=== PATIENT | female | born 1945 | race Hispanic/Latino ===

== ENCOUNTER → 2022-12-04 | Outpatient (CLI) | payer OTHER ==
[~2022-12-04] MED LIST: IOHEXOL 350 MG/ML 100ML INFUS..BTL IV ONE
== END | disposition home or self-care (01) ==
LOC: RAH 10:00
PROVIDERS: ATTEND Internal Medicine Cardiovascular Disease
DX: I65.23 Occlusion and stenosis of bilateral carotid arteries (principal); I25.10 Atherosclerotic heart disease of native coronary artery without angina pectoris; I70.0 Atherosclerosis of aorta
CPT/HCPCS: 70498; Q9967

== ENCOUNTER 2023-06-21 09:00 | Inpatient (IN) | payer OTHER ==
[~2023-06-21] VITALS: Ht 157.5 cm; Wt 76.8 kg
[2023-06-22 11:36] VITALS: BP 198/78; PULSE 71; RESP 17
[2023-06-22 12:52] LABS: APPEARANCE,URINE CLEAR (CLEAR); BILIRUBIN,URINE NEGATIVE (NEGATIVE); COLOR,URINE LIGHT-YELLOW (YELLOW); GLUCOSE, URINE (UA) NEGATIVE (NEGATIVE); KETONES,URINE NEGATIVE (NEGATIVE); LEUKOCYTE ESTERASE ,URINE 75 Leu/uL (NEGATIVE); NITRATE,URINE NEGATIVE (NEGATIVE); OCCULT BLOOD,URINE NEGATIVE (NEGATIVE); PROTEIN,URINE NEGATIVE (NEGATIVE); UROBILINOGEN,URINE 0.2 mg/dL (0.2-1.0)
[2023-06-22 12:53] LABS: BASOPHILS # (AUTO) 0.07 K/uL (0.00-0.20); BASOPHILS % (AUTO) 0.7 % (0.0-5.0); EOSINOPHILS # (AUTO) 0.15 K/uL (0.00-0.70); EOSINOPHILS % (AUTO) 1.5 % (0.0-8.0); IMMATURE GRANULOCYTE ABSOLUTE 0.05 K/uL (0-1); LYMPHOCYTES # (AUTO) 2.7 K/uL (1.0-4.8); LYMPHOCYTES % (AUTO) 27.3 % (21.0-51.0); MEAN CORPUSCULAR HEMOGLOBIN 25.4 pg (27.0-33.0); MEAN CORPUSCULAR HGB CONC 30.8 g/dL (32.0-36.0); MEAN CORPUSCULAR VOLUME 82.6 fL (79-99); MONOCYTES # (AUTO) 0.7 K/uL (0.1-1.0); MONOCYTES % (AUTO) 7.3 % (3.0-13.0); NEUTROPHILS # (AUTO) 6.2 K/uL (1.8-7.7); NEUTROPHILS % (AUTO) 62.7 % (40.0-77.0); PLATELET COUNT (AUTO) 321 K/uL (130-400); RED CELL DISTRIBUTION WIDTH 17.9 % (11.0-15.5); WHITE BLOOD COUNT (AUTO) 9.8 K/uL (4.8-10.8)
[2023-06-22 13:01] LABS: CREATININE 0.8 mg/dL (0.5-1.5); POTASSIUM 4.2 mmol/L (3.5-5.1)
[2023-06-22 13:03] LABS: INR < 0.93 (0.85-1.15); PROTHROMBIN TIME 10.3 SEC (9.6-11.6)
[2023-06-22 13:16] LABS: ADD UA MICROSCOPIC YES
[2023-06-22 13:23] LABS: MUCUS,URINE RARE LPF (None Seen); RBC,URINE 0-1 /HPF (0-1); SQUAMOUS EPITHELIAL CELL,UR RARE /HPF (0-2)
[2023-06-24] MEDS ORDERED: FAMO20TA8 PO (11:45)
[2023-06-24] MEDS ORDERED: UBID50TA3 PO (11:45)
[2023-06-24] MEDS ORDERED: ROSU20TA73 PO (11:45)
[2023-06-24] MEDS ORDERED: PARO-37 PO ×2 (11:45)
[2023-06-24] MEDS ORDERED: ASPI-1197 PO (11:45)
[2023-06-24] MEDS ORDERED: SIME125C81 PO (11:45)
[2023-06-24] MEDS ORDERED: FOLATE PEG (11:45)
[2023-06-24] MEDS ORDERED: LOSA100T59 PO ×2 (11:45)
[2023-06-24] MEDS ORDERED: AMLO-257 PO (11:45)
[2023-06-24] MEDS ORDERED: IRON PO (11:45)
[2023-06-24] MEDS ORDERED: CHOL500050 PO (11:45)
[2023-06-24] MEDS ORDERED: HYDR25TA PO (11:45)
[2023-06-25] VITALS (56 sets, daily range): BP systolic 139–165; BP diastolic 41–71; PULSE 60–77; RESP 12–27; O2SAT 95–99
[2023-06-25] MEDS ORDERED: 0.9%NACL 1000ML 1,000 ML IV ONE (06:43)
[2023-06-25] MEDS ORDERED: ROCURONIUM 10MG/1ML SYR 10 MG/ML ML ONE (07:01)
[2023-06-25] MEDS ORDERED: FENTANYL CITRATE PF 50 MCG/1 ML 2ML VIAL ONE (07:01)
[2023-06-25] MEDS ORDERED: PROPOFOL 10 MG/ML 20ML VIAL IV ONE (07:01)
[2023-06-25] MEDS ORDERED: ONDANSETRON 4MG INJ ONE (07:01)
[2023-06-25] MEDS ORDERED: HEPARIN 10,000 UNIT/10ML (1,000 UNIT/ML) VIAL ONE (07:06)
[2023-06-25] MEDS ORDERED: LIDOCAINE HCL 1% 20 ML VIAL ONE (07:06)
[2023-06-25] MEDS ORDERED: IODIXANOL 320 MG/ML 100 ML VIAL ONE ×2 (07:06→09:06)
[2023-06-25] MEDS ORDERED: MIDAZOLAM HCL 1 MG/ML 2ML VIAL ONE (07:11)
[2023-06-25] MEDS ORDERED: CEFAZOLIN SODIUM 1 GM VIAL ONE ×2 (07:47→08:06)
[2023-06-25] MEDS ORDERED: PHENYLEPHRINE HCL 10 MG/ML 1ML VIAL IV ONE (07:57)
[2023-06-25] MEDS ORDERED: ATROPINE 1MG SYG IVP ONE (08:05)
[2023-06-25] MEDS ORDERED: GLYCOPYRROLATE 0.2 MG/ML 5 ML VIAL ONE (08:06)
[2023-06-25] MEDS ORDERED: ROCURONIUM BROMIDE 10MG/1ML 5ML VL ONE (09:14)
[2023-06-25] MEDS ORDERED: NEOSTIGMINE 5MG/5ML SYR IV ONE (09:29)
[2023-06-25] MEDS ORDERED: NOREPINEPHRIN 4MG/NS 250ML 250 ML IV SCH (09:30)
[2023-06-25] MEDS ORDERED: NITROGLYCERIN 50MG/D5W 250ML 250 BOT IV SCH (09:30)
[2023-06-25] MEDS ORDERED: HYDRALAZINE 20MG/ML VIAL ONE (09:41)
[2023-06-25] MEDS ORDERED: SUGAMMADEX SODIUM 200 MG/2 ML VIAL IV ONE (09:44)
[2023-06-25] MEDS ORDERED: SIMETHICONE 125 MG PO PRN (11:00)
[2023-06-25] MEDS ORDERED: DIPHENHYDRAMINE HCL 25 MG CAPSULE PO PRN (12:30)
[2023-06-25] MEDS ORDERED: GUAIFENESIN-DM 200/20 MG 10 ML PO PRN (12:30)
[2023-06-25] MEDS ORDERED: DiphenhydrAMINE HCL 50 MG/ML VIAL IV PRN (12:30)
[2023-06-25] MEDS ORDERED: HYDROCODONE/ACETAMINOPHEN 5/325 MG TAB PO PRN ×2 (12:30)
[2023-06-25] MEDS ORDERED: HYDRALAZINE 20MG/ML VIAL IV PRN (12:30)
[2023-06-25] MEDS ORDERED: ACETAMINOPHEN 325 MG TAB PO PRN ×2 (12:30)
[2023-06-25] MEDS ORDERED: ONDANSETRON 4MG INJ IV PRN (12:30)
[2023-06-25] MEDS ORDERED: HYDROMORPHONE 1 MG INJ IV PRN (12:30)
[2023-06-25] MEDS ORDERED: NITROGLYCERIN 0.4 MG SL TAB SL PRN (12:30)
[2023-06-25] MEDS ORDERED: LACTULOSE 20 GM/30 ML UDCUP PO PRN (12:30)
[2023-06-25] MEDS ORDERED: MAG/ALUM/SIMETH 30 ML UDCUP PO PRN (12:30)
[2023-06-25] MEDS: CEFAZOLIN SODIUM 1 GM VIAL IVPB SCH (15:17)
[2023-06-25] MEDS ORDERED: CEFAZOLIN SODIUM 1 GM VIAL IVPB SCH (16:00)
[2023-06-25] MEDS: 0.9%NACL 1000ML 1,000 ML IV SCH ×2 (17:43→22:50)
[2023-06-25] MEDS ORDERED: ATORVASTATIN 40 MG TABLET PO SCH (21:00)
[2023-06-25] MEDS ORDERED: NON-FORMULARY MEDICATION 1 EACH (Rosuvastatin Calcium 20 MG) PO SCH (21:00)
[2023-06-25] MEDS ORDERED: PAROXETINE HCL 20 MG TABLET PO SCH (21:00)
[2023-06-25] MEDS ORDERED: FAMOTIDINE 20MG TAB PO SCH (21:00)
[2023-06-25] MEDS ORDERED: FAMOTIDINE 20MG VIAL IV SCH (21:00)
[2023-06-26] VITALS (63 sets, daily range): BP systolic 105–175; BP diastolic 35–95; PULSE 58–76; RESP 8–26; O2SAT 94–99
[2023-06-26] MEDS: CEFAZOLIN SODIUM 1 GM VIAL IVPB SCH (00:42)
[2023-06-26 04:45] LABS: MEAN CORPUSCULAR HEMOGLOBIN 25.6 pg (27.0-33.0); MEAN CORPUSCULAR HGB CONC 31.4 g/dL (32.0-36.0); MEAN CORPUSCULAR VOLUME 81.7 fL (79-99); RED BLOOD CELL COUNT(AUTO) 3.55 MIL/uL (4.00-5.50); RED CELL DISTRIBUTION WIDTH 18.7 % (11.0-15.5); WHITE BLOOD COUNT (AUTO) 10.3 K/uL (4.8-10.8)
[2023-06-26 04:55] LABS: CREATININE 0.7 mg/dL (0.5-1.5); POTASSIUM 3.1 mmol/L (3.5-5.1)
[2023-06-26] MEDS ORDERED: KCL 20 MEQ ERTAB PO ONE (06:50)
[2023-06-26] MEDS ORDERED: POTASSIUM CHLORIDE 10% ELIXIR 20 MEQ/15 ML UDCUP PO PRN (07:00)
[2023-06-26] MEDS ORDERED: FOLATE PEG SCH (09:00)
[2023-06-26] MEDS ORDERED: PAROXETINE HCL 20 MG TABLET PO SCH (09:00)
[2023-06-26] MEDS ORDERED: FAMOTIDINE 20MG TAB PO SCH (09:00)
[2023-06-26] MEDS ORDERED: AMLODIPINE 5 MG TAB PO SCH (09:00)
[2023-06-26] MEDS ORDERED: LOSARTAN 100 MG TABLET PO SCH ×2 (09:00)
[2023-06-26] MEDS ORDERED: VITAMIN D3 PO SCH (09:00)
[2023-06-26] MEDS ORDERED: IRON 65 MG PO SCH (09:00)
[2023-06-26] MEDS ORDERED: UBIDECARENONE 100 MG PO SCH (09:00)
[2023-06-26] MEDS ORDERED: HYDROCHLOROTHIAZIDE 25 MG TABLET PO SCH (09:00)
[2023-06-26] MEDS ORDERED: ASPIRIN 81MG CHEW TAB PO SCH (09:00)
[2023-06-26] MEDS: KCL 20 MEQ ERTAB PO PRN ×2 (11:11→14:07)
== END 2023-06-26 17:20 | disposition home or self-care (01) | DRG 35 ==
LOC: EDSTATUS 09:00 → DAHIP 06-25 05:49 → 2BH 06-25 08:21
PROVIDERS: ADMIT Internal Medicine; ATTEND Internal Medicine
PROC: 037K34Z Dilation of Right Internal Carotid Artery with Drug-eluting Intraluminal Device, Percutaneous Approach (ICD-10-PCS; principal; 2023-06-25)
PROC: 037H34Z Dilation of Right Common Carotid Artery with Drug-eluting Intraluminal Device, Percutaneous Approach (ICD-10-PCS; 2023-06-25)
PROC: 5A1223Z Performance of Cardiac Pacing, Continuous (ICD-10-PCS; 2023-06-25)
PROC: B3131ZZ Fluoroscopy of Right Common Carotid Artery using Low Osmolar Contrast (ICD-10-PCS; 2023-06-25)
PROC: B3161ZZ Fluoroscopy of Right Internal Carotid Artery using Low Osmolar Contrast (ICD-10-PCS; 2023-06-25)
PROC: B3191ZZ Fluoroscopy of Right External Carotid Artery using Low Osmolar Contrast (ICD-10-PCS; 2023-06-25)
DX: I65.21 Occlusion and stenosis of right carotid artery (principal); I25.810 Atherosclerosis of coronary artery bypass graft(s) without angina pectoris; E78.5 Hyperlipidemia, unspecified; F41.9 Anxiety disorder, unspecified; I10 Essential (primary) hypertension; I95.9 Hypotension, unspecified; Z96.653 Presence of artificial knee joint, bilateral; Z87.891 Personal history of nicotine dependence; Z95.1 Presence of aortocoronary bypass graft
CPT/HCPCS: 36415; 37215; 71045; 80048; 81001; 82948; 85025; 85027; 85347; 85610; 85730; 86850; 86900; 86901; 87088; 93005; A4344; A4606; C1769; G0378; J0360; J0461; J0690; J1644; J2250; J2371; J2405; J2704; J2710; J3010; J3490; J7030; Q9967; 2015.00; A4215; A4216; A4221; A4222; A4223; A4600; A4649; A4663; A6260; C-1725; C1725; C1876; C1884; C1894